=== PATIENT | female | born 2000 | race Two or more races ===

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

== ENCOUNTER 2022-06-16 21:33 | Inpatient (IN) | payer MEDICAID ==
[~2022-06-16] VITALS: Ht 157.5 cm; Wt 79.2 kg
[2022-06-16 22:29] LABS: Basophils # (auto) 0.1 10 ^3/uL (0-0.2); Basophils % (auto) 0.5 % (0.0-2.0); Eosinophils # (auto) 0.3 10 ^3/uL (0-0.8); Eosinophils % (auto) 1.7 % (0.0-7.0); Hematocrit 40.7 % (36.0-46.0); Lymphocytes # (auto) 1.9 10 ^3/uL (0.4-5.4); Lymphocytes % (auto) 9.9 % (10.0-50.0); Mean Corpuscular Hemoglobin 31.6 pg (28.0-32.0); Mean Corpuscular Hgb Conc. 34.4 g/dL (32.0-36.0); Monocytes % (auto) 5.2 % (0.0-12.0); Neutrophils # (auto) 15.6 10 ^3/uL (1.6-8.6); Neutrophils % (auto) 82.7 % (37.0-80.0); Nucleated Red Blood Cells % 0.1 %; Red Blood Cells 4.43 10^6/uL (4.0-5.20); Red Cell Distribution Width 13.3 % (11.8-14.3); White Blood Cell 18.9 10^3/uL (4.4-10.8)
[2022-06-16 22:57] LABS: Albumin 3.4 g/dL (3.4-5.0); Calcium 9.4 mg/dL (8.5-10.1); Magnesium 1.9 mg/dL (1.6-2.6); Potassium 4.1 mmol/L (3.5-5.1)
[2022-06-16 23:00] LABS: Bilirubin, Total 0.5 mg/dL (0.2-1.0); Total Protein 7.4 g/dL (6.4-8.2)
[2022-06-17] MEDS ORDERED: ACETAMINOPHEN 325 MG TAB PO ONE (02:30)
[2022-06-17] MEDS ORDERED: LACTATED RINGER'S 1,000 ML IV ONE (04:00)
[2022-06-17] MEDS ORDERED: diphenhdrAMINE HCL 50 MG/1 ML VL IV ONE (06:00)
[2022-06-17] MEDS ORDERED: METOCLOPRAMIDE HCL 5MG/ml INJ 2ml VIAL IV ONE (06:00)
[2022-06-17 06:59] LABS: Urine Bacteria FEW /hpf (None Seen); Urine Blood Negative /uL (Negative); Urine Mucus FEW (None Seen); Urine Specific Gravity 1.029 (1.001-1.035); Urine WBC 10 /hpf (0 - 5)
[2022-06-17] MEDS ORDERED: HEPARIN SODIUM (PORCINE) 5000 UNITS/ML 1ML VIAL IV ONE (09:15)
[2022-06-17] MEDS ORDERED: cefTRIAXone 1GM/50ML D5W 50 ML IV ONE (09:15)
[2022-06-17] MEDS ORDERED: HEPARIN DRIP/D5W 100UNITS/ML 250 ML IV SCH (09:17)
[2022-06-17 09:47] LABS: Basophils # (auto) 0.1 10 ^3/uL (0-0.2); Basophils % (auto) 0.3 % (0.0-2.0); Eosinophils # (auto) 0.5 10 ^3/uL (0-0.8); Eosinophils % (auto) 2.6 % (0.0-7.0); Hematocrit 36.7 % (36.0-46.0); Hemoglobin 12.2 g/dL (12.2-16.2); Lymphocytes # (auto) 1.4 10 ^3/uL (0.4-5.4); Mean Corpuscular Hemoglobin 30.2 pg (28.0-32.0); Mean Corpuscular Hgb Conc. 33.1 g/dL (32.0-36.0); Mean Corpuscular Volume 91.4 fL (80.0-100.0); Monocytes % (auto) 4.9 % (0.0-12.0); Neutrophils # (auto) 16.8 10 ^3/uL (1.6-8.6); Neutrophils % (auto) 85.2 % (37.0-80.0); Red Blood Cells 4.02 10^6/uL (4.0-5.20); Red Cell Distribution Width 13.1 % (11.8-14.3); White Blood Cell 19.7 10^3/uL (4.4-10.8)
[2022-06-17 10:26] LABS: INR 0.99 (0.9-1.15)
[2022-06-17] MEDS ORDERED: PROMETHAZINE HCL 25 MG/ML 1ML IV PRN (10:45)
[2022-06-17] MEDS: LACTATED RINGER'S 1,000 ML IV SCH ×2 (11:02→23:15)
[2022-06-17 17:21] LABS: INR 1.02 (0.9-1.15); Partial Thromboplastin Time 60.6 sec (24.6-33.4)
[2022-06-17 23:45] VITALS: BP 119/73
[2022-06-17 23:48] VITALS: BP 119/73
[2022-06-18 00:14] LABS: INR 1.01 (0.9-1.15)
[2022-06-18 05:00] VITALS: BP 101/57
[2022-06-18] MEDS: HEPARIN DRIP/D5W 100UNITS/ML 250 ML IV SCH ×2 (05:00→20:24)
[2022-06-18] MEDS: LACTATED RINGER'S 1,000 ML IV SCH ×2 (05:15→16:31)
[2022-06-18 06:48] LABS: BUN/Creatinine Ratio 11.9; Calcium 9.1 mg/dL (8.5-10.1); Potassium 3.6 mmol/L (3.5-5.1)
[2022-06-18 07:05] LABS: Basophils # (auto) 0.1 10 ^3/uL (0-0.2); Basophils % (auto) 0.6 % (0.0-2.0); Eosinophils # (auto) 0.7 10 ^3/uL (0-0.8); Eosinophils % (auto) 4.9 % (0.0-7.0); Hematocrit 37.6 % (36.0-46.0); Hemoglobin 12.5 g/dL (12.2-16.2); Lymphocytes # (auto) 2.3 10 ^3/uL (0.4-5.4); Lymphocytes % (auto) 15.3 % (10.0-50.0); Mean Corpuscular Hemoglobin 30.7 pg (28.0-32.0); Mean Corpuscular Hgb Conc. 33.2 g/dL (32.0-36.0); Mean Corpuscular Volume 92.6 fL (80.0-100.0); Monocytes % (auto) 6.8 % (0.0-12.0); Neutrophils % (auto) 72.4 % (37.0-80.0); Red Blood Cells 4.06 10^6/uL (4.0-5.20); Red Cell Distribution Width 13.5 % (11.8-14.3); White Blood Cell 15.2 10^3/uL (4.4-10.8)
[2022-06-18 07:35] LABS: INR 1.01 (0.9-1.15); Partial Thromboplastin Time 50.3 sec (24.6-33.4)
[2022-06-18 09:00] VITALS: BP 109/65
[2022-06-18] MEDS: cefTRIAXone 1GM/50ML D5W 50 ML IV SCH (09:28)
[2022-06-18 13:00] VITALS: BP 103/62
[2022-06-18 14:29] LABS: INR 0.98 (0.9-1.15)
[2022-06-18 14:49] LABS: Partial Thromboplastin Time 72.5 sec (24.6-33.4)
[2022-06-18 16:30] VITALS: BP 104/63
[2022-06-18 20:00] VITALS: BP 102/65
[2022-06-18 20:05] LABS: INR 0.98 (0.9-1.15); Partial Thromboplastin Time 69.2 sec (24.6-33.4)
[2022-06-18 22:00] VITALS: BP 102/65
[2022-06-19] MEDS: LACTATED RINGER'S 1,000 ML IV SCH ×3 (01:15→22:22)
[2022-06-19 04:55] VITALS: BP 104/61
[2022-06-19 09:00] VITALS: BP 93/47
[2022-06-19] MEDS: cefTRIAXone 1GM/50ML D5W 50 ML IV SCH (09:16)
[2022-06-19 10:25] LABS: INR 0.99 (0.9-1.15); Partial Thromboplastin Time 68.9 sec (24.6-33.4)
[2022-06-19] MEDS ORDERED: guaiFENesin-DM 100/10mg/5ml SYR PO PRN (11:00)
[2022-06-19 13:00] VITALS: BP 110/68
[2022-06-19 15:01] LABS: Urine Bacteria FEW /hpf (None Seen); Urine Blood Negative /uL (Negative); Urine Mucus FEW (None Seen); Urine Specific Gravity 1.006 (1.001-1.035); Urine WBC 2 /hpf (0 - 5)
[2022-06-19 16:24] VITALS: BP 101/68
[2022-06-19 20:00] VITALS: BP 97/55
[2022-06-19 21:52] VITALS: BP 97/55
[2022-06-20 04:35] VITALS: BP 103/67
[2022-06-20 08:15] VITALS: BP 99/53
[2022-06-20] MEDS: LACTATED RINGER'S 1,000 ML IV SCH (08:15)
[2022-06-20] MEDS: cefTRIAXone 1GM/50ML D5W 50 ML IV SCH (08:47)
[2022-06-20 09:00] VITALS: BP 99/53
[2022-06-20] MEDS ORDERED: HEPARIN SODIUM (PORCINE) 5000 UNITS/ML 1ML VIAL SC SCH (10:00)
[2022-06-20] MEDS ORDERED: ONDA-144 PO (11:08)
[2022-06-20] MEDS ORDERED: NITR-52 PO (11:08)
[2022-06-20 11:34] LABS: Partial Thromboplastin Time 31.3 sec (24.6-33.4)
[2022-06-20 12:56] VITALS: BP 97/54
[2022-06-20 13:26] VITALS: BP 97/54
== END 2022-06-20 15:58 | disposition home or self-care (01) | DRG 566 ==
LOC: ER 21:35 → OVERFLOW 06-17 08:50 → TELE-WESTW 06-17 22:57
PROVIDERS: ADMIT Registered Nurse; ATTEND Internal Medicine
DX: O98.812 Other maternal infectious and parasitic diseases complicating pregnancy, second trimester (principal); O88.212 Thromboembolism in pregnancy, second trimester; A41.9 Sepsis, unspecified organism; O23.42 Unspecified infection of urinary tract in pregnancy, second trimester; Z20.822 Contact with and (suspected) exposure to COVID-19; Z3A.21 21 weeks gestation of pregnancy; Z82.49 Family history of ischemic heart disease and other diseases of the circulatory system; Z90.49 Acquired absence of other specified parts of digestive tract; Z71.6 Tobacco abuse counseling; Z87.891 Personal history of nicotine dependence
CPT/HCPCS: 36415; 76805; 76815; 80048; 80053; 81001; 83735; 84484; 85025; 85379; 85610; 85730; 87040; 87086; 87426; 87804; 93005; 93306; 93970; 96361; 96374; 96375; G0378; J0696